=== PATIENT | female | born 1960 | race Caucasian/White ===

== ENCOUNTER → 2016-06-04 | Outpatient (CLI) | payer OTHER ==
[~2016-06-04] MED LIST: ADVIN25/60 INH; ASPEC81 PO; ATEN50TA PO; CITA40TA4 PO; CLON0.5T3 PO; HYDR-5688 PO; HYDR50TA3 PO; LEVO137T3 PO; MONT1TAB3 PO; MRPSR15 PO; MULTTAB58 PO; OMEP20TA40 PO; POTA10TA PO; PRAM1TAB PO; PRAV20TA PO; SNK PO
--- NOTE | 2016-06-04 08:51 | DIAGNOSTIC IMAGING REPORT ---
CT OF THE ABDOMEN AND PELVIS WITH AND WITHOUT CONTRAST HEMATURIA PROTOCOL CLINICAL HISTORY: Left flank pain. COMPARISON STUDY: CT of the abdomen and pelvis April 14, 2015 and IVP April 22, 2015. TECHNIQUE: Unenhanced and split bolus phase imaging of the abdomen and pelvis was performed. Injection of 119 cc Optiray [address] DOSE: 2996.29 mGy.cm FINDINGS: No renal, ureteral or bladder calculi are noted. There is no hydronephrosis or hydroureter. A cyst within the lower pole of the left kidney has mildly increased in size since exam of April 14, 2015 but remains diminished in size when compared to initial CT of November 22, 2014. This cyst measures 4.7 x 3.4 cm. It previously measured 3.5 x 2.4 cm. No additional renal lesions are present. No upper tract filling defects are identified. The gallbladder is surgically absent. No bladder lesion is identified although the nondependent aspect of the bladder is unopacified. The liver, spleen, adrenal glands and pancreas are unremarkable. There is no evidence for a bowel obstruction. There is no lymphadenopathy. Small umbilical hernia containing fat is noted. Skeletal structures are unremarkable. IMPRESSION: 1. Mild increase in size of the 4.7 x 3.4 cm left renal cyst since prior CT. This cyst remains decreased in size when compared to initial CT of November 22, 2014. 2. No urinary calculi or hydronephrosis. 3. No upper tract urothelial lesions identified. Electronically signed by: Jarret Armstrong M.D. 06/04/2016 8:49 AM Dictated Date/Time: 06/04/2016 8:41 AM
== END | disposition home or self-care (01) ==
LOC: C.CTS 07:58
PROVIDERS: ATTEND Urology
DX: R10.9 Unspecified abdominal pain (principal); N28.1 Cyst of kidney, acquired

== ENCOUNTER → 2016-08-17 | Outpatient (CLI) | payer OTHER ==
--- NOTE | 2016-08-17 12:47 | DIAGNOSTIC IMAGING REPORT ---
CHEST 2 VIEWS ROUTINE CLINICAL HISTORY: PRE-OP preoperative evaluation COMPARISON STUDY: No previous studies for comparison. FINDINGS: The bones soft tissues and hemidiaphragms are normal. The cardiomediastinal silhouette is normal. The lungs are clear. The pulmonary vasculature is normal. IMPRESSION: Negative chest. Electronically signed by: Gilbert Humphreys M.D. 08/17/2016 12:46 PM Dictated Date/Time: 08/17/2016 12:44 PM
[2016-08-17 13:20] LABS: BASO % 0.3 %; BASO ABS # 0.04 K/uL (0-0.2); COMPLETE YES; EOS % 2.7 %; IG% 0.4 %; LYMPH % 23.1 %; LYMPH ABS # 2.94 K/uL (1.2-3.4); MEAN CELL VOLUME 90.9 fL (80-100); MEAN CORPUSCULAR HEMOGLOBIN 30.6 pg (25-34); MEAN CORPUSCULAR HGB CONC 33.6 g/dl (32-36); MEAN PLATELET VOLUME 10.1 fL (7.4-10.4); MONO % 6.4 %; NEUT % 67.1 %; PLATELET COUNT 307 K/uL (130-400); RED BLOOD COUNT 4.84 M/uL (4.2-5.4); WHITE BLOOD COUNT 12.74 K/uL (4.8-10.8)
[2016-08-17 13:44] LABS: BLOOD UREA NITROGEN 12 mg/dl (7-18); BUN/CREATININE RATIO 13.2 (10-20); CALCIUM 9.6 mg/dl (8.5-10.1); CARBON DIOXIDE 33 mmol/L (21-32); CHLORIDE 103 mmol/L (98-107); CREATININE 0.93 mg/dl (0.60-1.20); GLUCOSE 100 mg/dl (70-99); INR 0.9 (0.9-1.1); POTASSIUM 3.3 mmol/L (3.5-5.1); PROTHROMBIN TIME (PATIENT) 10.1 SECONDS (9.0-12.0); SODIUM 142 mmol/L (136-145)
[2016-08-17 13:46] LABS: URINE APPEARANCE CLEAR (CLEAR); URINE BILIRUBIN NEG (NEG); URINE COLOR YELLOW; URINE EPITHELIAL CELL AUTO >30 /lpf (0-5); URINE NITRITE NEG (NEG); URINE SPECIFIC GRAVITY 1.016 (1.000-1.030); UROBILINOGEN NEG (NEG)
[2016-08-17 13:56] LABS: MANUAL MICROSCOPIC REQUIRED? NO; REVIEW REQ? NO
[2016-08-17 14:31] LABS: ESTIMATED AVERAGE GLUCOSE 128 mg/dl; HA1C FLAG Normal (Normal)
== END | disposition home or self-care (01) ==
LOC: C.CPL 11:58
PROVIDERS: ATTEND Orthopaedic Surgery
DX: M17.11 Unilateral primary osteoarthritis, right knee (principal)

== ENCOUNTER 2016-08-28 05:55 | Inpatient (IN) | payer OTHER ==
--- NOTE | 2016-08-20 12:48 | HISTORY & PHYSICAL EXAMINATION ---
DATE OF ADMISSION: 08/21/2016 HISTORY OF PRESENT ILLNESS: The patient presents as a 55-year-old white female, 5.4, 250 pounds presents with complaints of ongoing pain attributable to her left knee for left total knee arthroplasty. She has failed attempts at conservative management including physical therapy, anti-inflammatories, relative rest, activity modification, injections and presents for total knee arthroplasty. PAST MEDICAL HISTORY: Significant for hypertension, hypercholesterolemia, asthma, sleep apnea, utilizing home CPAP. Otherwise unremarkable. See history of present illness for pertinent positives. FAMILY HISTORY: Unremarkable and noncontributory. SOCIAL HISTORY: The patient denies history of smoking, alcohol use or recreational drug use. PAST SURGICAL HISTORY: Significant for tonsillectomy in 1962, hysterectomy in 1991, and appendectomy. ALLERGIES: BETADINE CAUSES SKIN IRRITATION AND NICK INHIBITORS. MEDICATIONS: Include omeprazole 40 mg p.o. daily, hydrochlorothiazide 50 mg p.o. daily, Klonopin 5 mg p.o. daily, Singulair p.r.n., atenolol - unknown dose, Advair 2 times daily, and Imitrex p.r.n. for migraines. PHYSICAL EXAMINATION: GENERAL: Reveals a very pleasant 55-year-old white female, alert and oriented x3 with complaints of ongoing pain attributable to her left knee and presents for left total knee arthroplasty, postoperative pain management, DVT prophylaxis, antibiotics. HEENT: Otherwise atraumatic, normocephalic. HEART: Regular at 70 beats per minute. No murmurs are noted. LUNGS: Clear. No rales, rhonchi, or wheezes noted. ABDOMEN: Soft, nontender, nondistended. Bowel sounds are present in all 4 quadrants. RECTAL: No rectal examination performed. MUSCULOSKELETAL: Consistent with that of severe DJD, left knee with varus alignment, [id number] medial compartment with subchondral sclerosis, osteophyte formation. PLAN: Left total knee arthroplasty. Postop pain management, DVT prophylaxis, antibiotics as necessary. MTDD
[2016-08-27 14:43] VITALS: BMI 43.0
[~2016-08-28] VITALS: Ht 162.6 cm; Wt 113.6 kg
[2016-08-28] VITALS (10 sets, daily range): BP systolic 105–120; BP diastolic 65–81; PULSE 69–88; TEMP 36.4–36.9; O2SAT 92–99; Ht 162.6 cm; Wt 113.6 kg
[~2016-08-28 05:55] MED LIST changes: -ASPEC81 PO; -HYDR-5688 PO; -MRPSR15 PO; -PRAM1TAB PO; -SNK PO
[2016-08-28] MEDS ORDERED: DEXAMETHASONE 4 MG TAB PO SCH (06:00)
[2016-08-28] MEDS ORDERED: METOCLOPRAMIDE HCL 10 MG TAB PO SCH (06:00)
[2016-08-28] MEDS ORDERED: ACETAMINOPHEN 500 MG TAB PO SCH (06:00)
[2016-08-28] MEDS ORDERED: CEFAZOLIN 2000 MG/60 ML D5W 60 ML IV SCH (06:00)
[2016-08-28] MEDS ORDERED: ROPIVACAINE 5MG/ML 30 ML 150 MG, BUPIVACAINE/EPINEPHR 0.5% MPF 30 ML, KETOROLAC TROMETH... INFIL SCH ×7 (06:00)
[2016-08-28] MEDS ORDERED: CeleBREX 200 MG CAP PO SCH (06:00)
[2016-08-28] MEDS ORDERED: GABAPENTIN 300 MG CAP PO SCH (06:00)
[2016-08-28] MEDS ORDERED: LACTATED RINGER'S 1000ML IV SCH (06:00)
[2016-08-28] MEDS: TRANEXAMIC ACID INJ 1,000 MG in SODIUM CHLORIDE 0.9% 100ML 100 ML IV SCH ×2 (06:30→07:50)
--- NOTE | 2016-08-28 06:50 | History & Physical Bridge Note ---
H&P Re-Evaluation Bridge Note: I have examined the patient, reviewed the History & Physical and in the interval since the performance of the History & Physical I have noted the following changes of clinical significance: No changes noted
[2016-08-28] MEDS ORDERED: POVIDONE-IODINE OP SOLN 30 ML BTL ONE (06:59)
[2016-08-28] MEDS ORDERED: BACITRACIN 50000 UNIT VIAL ONE (06:59)
[2016-08-28] MEDS ORDERED: ORTHO JOINT ANESTHETIC ONE (06:59)
[2016-08-28] MEDS ORDERED: MIDAZOLAM HCL 1 MG/ML 2ML VIAL ONE (07:07)
[2016-08-28] MEDS ORDERED: FENTANYL CITRATE INJ 50 MCG/1 ML 2 ML VIAL ONE (07:07)
[2016-08-28] MEDS ORDERED: BUPIVACAINE 0.5 % 5 MG/1 ML PF 10ML VIAL ONE (07:09)
[2016-08-28] MEDS ORDERED: BUPIVACAINE 0.25% 30 ML VIAL ONE (07:09)
[2016-08-28] MEDS ORDERED: LIDOCAINE HCL 2% 2 ML VIAL (20MG/ML) ONE (07:11)
[2016-08-28] MEDS ORDERED: PROPOFOL IV EMULSION 10 MG/ML 20 ML VIAL IV ONE ×3 (07:11→09:18)
[2016-08-28] MEDS ORDERED: LACTATED RINGER'S 1000ML 1,000 ML IV PRN (07:25)
[2016-08-28] MEDS ORDERED: FENTANYL CITRATE INJ 50 MCG/1 ML 2 ML VIAL IV PRN (07:30)
[2016-08-28] MEDS ORDERED: ONDANSETRON INJ 2 MG/ML 2 ML VIAL IV PRN ×2 (07:30→09:30)
[2016-08-28] MEDS ORDERED: KETAMINE HCL INJ 50 MG/ML 10 ML VIAL ONE (08:41)
--- NOTE | 2016-08-28 09:27 | [facility] Post Operative Brief Note ---
Immediate Operative Summary Operative Date August 28, 2016. Pre-Operative Diagnosis Left Knee Degenerative Joint Disease Post-Operative Diagnosis Left Knee Degenerative Joint Disease Procedure(s) Performed Left Total Knee Arthroplasty Surgeon Dr. Christopher Lubin Laborer Rags Surgeon(s) Bang Otero PA-C Estimated Blood Loss 5ML Findings severe djd lt knee Specimens A. Left Knee Bone and Tissue Complication(s) None Disposition Recovery Room / PACU
[2016-08-28] MEDS ORDERED: ZOLPIDEM TARTRATE 5 MG TAB PO PRN (09:30)
[2016-08-28] MEDS ORDERED: METOCLOPRAMIDE HCL INJ 5 MG/ML 2 ML VIAL IV PRN (09:30)
[2016-08-28] MEDS ORDERED: BISACODYL 10 MG SUPP PR PRN (09:30)
[2016-08-28] MEDS ORDERED: DiphenhydrAMINE HCL 50 MG/ML VIAL IV PRN (09:30)
[2016-08-28] MEDS ORDERED: MAGNESIUM HYDROXIDE SUSP 30 ML UDC PO PRN (09:30)
[2016-08-28] MEDS ORDERED: ALUMINUM/MAGNESIUM/SIMETH (MAALOX MAX) 30 ML UDC PO PRN (09:30)
[2016-08-28] MEDS ORDERED: SOD PHOSPHATE/SOD BIPHOSPHATE ENEMA 132 ML BTL PR PRN (09:30)
[2016-08-28] MEDS ORDERED: ONDANSETRON INJ 2 MG/ML 2 ML VIAL ONE (09:37)
--- NOTE | 2016-08-28 09:47 | OPERATIVE REPORT ---
DATE OF ADMISSION: 08/28/2016 PREOPERATIVE DIAGNOSIS: Severe end-stage degenerative joint disease, left knee. POSTOPERATIVE DIAGNOSIS: Severe end-stage degenerative joint disease, left knee. PROCEDURE: Left total knee arthroplasty utilizing Haines \T\ Nephew Journey II nonblock total knee arthroplasty, size 4 femur, 3 tibia, 9 poly, 29 oval patella. SURGEON: Dr. Lubin. SUPERVISOR IN CIRCUIT TESTING: MONICA Ballesteros. ANESTHESIA: Femoral nerve block, spinal. COMPLICATIONS: None. ESTIMATED BLOOD LOSS: 5 mL TOURNIQUET TIME: 45 minutes. HISTORY: The patient presents as a very pleasant 55-year-old white female with complaints of severe end-stage DJD about her left knee. She has failed attempts at conservative management including physical therapy, anti-inflammatories, relative rest, activity modification, and presents today for left total knee arthroplasty after failing all conservative measures. Risks and complications were discussed extensively. Decision was made to proceed forward with total knee arthroplasty. OPERATION AND FINDINGS: PROCEDURE: The patient was properly prepped and draped in supine position for total knee arthroplasty after identifying the appropriate surgical site. An anterior midline incision was made through the subcutaneous tissues down to the region of the extensor mechanism. A medial parapatellar incision was subsequently made. Meticulous hemostasis was obtained and performed at all times. The patella having been subluxed lateralward, medial and lateral meniscal remnants were excised. The patellar cut was then initially made and was sized to the appropriate size. After subluxing the tibia forward the appropriate meniscal fragments having been removed the distal femur was then cut first utilizing a Haines and Nephew nonblock. The distal femoral cuts and chamfer cuts were all made under direct visualization and the proximal tibial osteotomy cut was also made utilizing Haines and Nephew nonblocks and checked with an extramedullary guide. The appropriate trial components on the femur and tibia were placed. Appropriate trial spacers were used to check flexion and extension gaps. With flexion and extension gaps being equal, the components were then subsequently after thorough irrigation and debridement lavage components were then subsequently cemented in the following order: femur, tibia and patella. Exparel was used for intraoperative anesthesia, the medial parapatellar incision was closed utilizing #1 Vicryl, subQ was closed with 2-0 Vicryl, skin was closed with skin clips. A sterile compression dressing was placed. The patient was taken to recovery room in stable condition. Due to the complex nature of the procedure, the entire surgery was performed with the operational assistance of MONICA Ballesteros. The campus administrative assistant, under direct supervision, was involved in the actual performance of all aspects of the surgical procedure including hemostasis, tissue retraction and incision, instrument management, patient positioning, and wound closure. I attest to the content of the Intraoperative Record and any orders documented therein. Any exceptions are noted below. MIGUEL A
[2016-08-28] MEDS ORDERED: MoRPHine SULFATE 2 MG/ML CARP IV PRN ×2 (10:15→12:30)
--- NOTE | 2016-08-28 10:25 | DIAGNOSTIC IMAGING REPORT ---
LEFT KNEE 1 OR 2 VIEWS ROUTINE CLINICAL HISTORY: AP/LATERAL IN PACU LEFT KNEE COMPARISON: None. DISCUSSION: Evidence for a total left knee arthroplasty. Good contact between prosthetic and underlying bone. Surgical drains are in position IMPRESSION: Anatomic alignment status post total left knee replacement Electronically signed by: Gilbert Humphreys M.D. 08/28/2016 10:24 AM Dictated Date/Time: 08/28/2016 10:23 AM
--- NOTE | 2016-08-28 11:12 | Anesthesiology Progress Note ---
Anesthesia Post Op Note Date & Time August 28, 2016 at 11:11 Vital Signs Pain Intensity: 0 Vital Signs Past 12 Hours Date Time Temp Pulse Resp B/P Pulse Ox O2 Delivery O2 Flow Rate FiO2 08/28/16 11:05 78 18 103/66 95 Nasal Cannula 3 08/28/16 10:55 74 22 99/60 92 Nasal Cannula 3 08/28/16 10:45 74 19 111/64 92 Nasal Cannula 3 08/28/16 10:35 73 18 108/64 94 Nasal Cannula 3 08/28/16 10:25 76 15 107/68 94 Nasal Cannula 3 08/28/16 10:15 80 16 105/73 97 Nasal Cannula 3 08/28/16 10:08 36.8 86 16 99/66 95 Nasal Cannula 3 08/28/16 06:44 36.6 69 20 118/79 94 Room Air Notes Mental Status: alert / awake / arousable, participated in evaluation Pt Amnestic to Procedure: No (recall as expected) Nausea / Vomiting: adequately controlled Pain: adequately controlled Airway Patency, RR, SpO2: stable & adequate BP & HR: stable & adequate Hydration State: stable & adequate Neuraxial Anesthesia: was administered, sensory block is resolving Anesthetic Complications: no major complications apparent Pt doing well.
[2016-08-28] MEDS: SODIUM CHLORIDE 0.9% 1000ML 1,000 ML IV SCH ×2 (12:27→18:53)
[2016-08-28] MEDS ORDERED: MoRPHine SULFATE 10 MG/ML CARP/VIAL IV PRN (12:30)
[2016-08-28] MEDS: FERROUS GLUCONATE 324 MG TAB PO SCH ×2 (13:05→17:20)
[2016-08-28] MEDS ORDERED: TRANEXAMIC ACID INJ 1,000 MG in SODIUM CHLORIDE 0.9% 100ML 100 ML IV SCH (16:00)
[2016-08-28] MEDS: CEFAZOLIN IV 2,000 MG in DEXTROSE 5% 50ML 50 ML IV SCH ×2 (16:23→23:19)
[2016-08-28] MEDS: OXYCODONE HCL IR 5 MG TAB (IMMEDIATE RELEASE) PO PRN ×2 (17:00→23:20)
[2016-08-28] MEDS ORDERED: OXYCODONE HCL 10 MG TABCR (OXYCONTIN) PO SCH (21:00)
[2016-08-28] MEDS: CLONAZEPAM 0.5 MG TAB PO SCH (21:04)
[2016-08-28] MEDS: ASPIRIN 325 MG ECTAB PO SCH (21:04)
[2016-08-28] MEDS: FLUTICASONE/SALMETEROL 250/50 (ADVAIR) 14 PUFF/1 INHALER INH SCH (21:04)
[2016-08-28] MEDS: DOCUSATE SODIUM 100 MG CAP PO SCH (21:05)
[2016-08-28] MEDS: PRAVASTATIN SOD 20 MG TAB PO SCH (21:05)
[2016-08-28] MEDS: MONTELUKAST SOD 10 MG TAB PO SCH (21:06)
[2016-08-28] MEDS: SENNA 8.6 MG TAB PO SCH (21:06)
[2016-08-29] VITALS (7 sets, daily range): BP systolic 102–157; BP diastolic 67–93; PULSE 70–82; TEMP 36.4–37.5; O2SAT 90–95
[2016-08-29] MEDS: SODIUM CHLORIDE 0.9% 1000ML 1,000 ML IV SCH (05:30)
[2016-08-29] MEDS: OXYCODONE HCL IR 5 MG TAB (IMMEDIATE RELEASE) PO PRN (05:30)
[2016-08-29] MEDS: LEVOTHYROXINE 137 MCG TAB PO SCH (05:30)
[2016-08-29 06:58] LABS: HEMATOCRIT 36.3 % (37-47); MEAN CELL VOLUME 91.2 fL (80-100); MEAN CORPUSCULAR HEMOGLOBIN 30.7 pg (25-34); MEAN CORPUSCULAR HGB CONC 33.6 g/dl (32-36); MEAN PLATELET VOLUME 9.9 fL (7.4-10.4); PLATELET COUNT 250 K/uL (130-400); RED BLOOD COUNT 3.98 M/uL (4.2-5.4); WHITE BLOOD COUNT 16.96 K/uL (4.8-10.8)
--- NOTE | 2016-08-29 07:08 | Orthopedic Progress Note ---
Orthopedic Progress Note Date of Service August 29, 2016. Subjective Post OP Day: 1 Reports: nausea / vomiting, Denies: SOB, calf pain, chest pain, light headedness Additional Notes: Pt with nausea and some emesis last night. States that Oxycodone causes nausea as well as other narcotics. Hydrocodone is less bothersome. No other complaints this AM. Objective calves soft nontender, N/V intact, dressing C/D/I, A&O x3, toes mobile, hemovac drainage (30ml latest shift) Date Time Temp Pulse Resp B/P Pulse Ox O2 Delivery O2 Flow Rate FiO2 08/29/16 03:30 36.4 78 17 102/67 94 Room Air 08/28/16 23:20 CPAP 08/28/16 22:53 36.4 88 16 114/71 92 Room Air 08/28/16 19:34 36.6 85 18 118/75 96 Nasal Cannula 2.0 08/28/16 15:00 36.7 80 18 115/81 95 Nasal Cannula 3.0 08/28/16 14:31 36.9 83 19 120/65 92 Nasal Cannula 3.0 08/28/16 13:25 82 16 109/70 99 Nasal Cannula 3.0 08/28/16 12:25 36.9 83 16 114/76 95 Nasal Cannula 3.0 08/28/16 12:00 92 Nasal Cannula 3.0 08/28/16 11:55 36.7 81 16 109/72 92 Nasal Cannula 3.0 08/28/16 11:25 36.9 82 14 105/70 93 Nasal Cannula 3.0 08/28/16 11:25 92 Nasal Cannula 3.0 08/28/16 11:25 36.9 82 14 105/70 92 Nasal Cannula 3.0 08/28/16 11:15 79 17 105/64 93 Nasal Cannula 3 08/28/16 11:05 36.6 78 18 103/66 95 Nasal Cannula 3 08/28/16 10:55 74 22 99/60 92 Nasal Cannula 3 08/28/16 10:45 74 19 111/64 92 Nasal Cannula 3 08/28/16 10:35 73 18 108/64 94 Nasal Cannula 3 08/28/16 10:25 76 15 107/68 94 Nasal Cannula 3 08/28/16 10:15 80 16 105/73 97 Nasal Cannula 3 08/28/16 10:08 36.8 86 16 99/66 95 Nasal Cannula 3 Laboratory Results 24 Hours: Test 08/29/16 06:30 Hematocrit 36.3 % Hemoglobin 12.2 g/dL Assessment & Plan Assessment: POD 1 s/p Left TKA Plan: Hold Oxycontin; OxyIR; Add [place] and Toradol. Consider MSContin if pain control still not adequate PT/OT PLanning for OPPT Inhouse Planning Pain Management: Toradol, [place], Morphine, PO Tylenol DVT Prophylaxis: TEDs, SCDs, ASA
[2016-08-29 07:30] LABS: CALCIUM 8.6 mg/dl (8.5-10.1); CREATININE 0.84 mg/dl (0.60-1.20); POTASSIUM 3.8 mmol/L (3.5-5.1)
--- NOTE | 2016-08-29 07:49 | Anesthesiology Progress Note ---
Anesthesia Post Op Note Date & Time August 29, 2016 at 07:50 Vital Signs Pain Intensity: 3.0 Vital Signs Past 12 Hours Date Time Temp Pulse Resp B/P Pulse Ox O2 Delivery O2 Flow Rate FiO2 08/29/16 03:30 36.4 78 17 102/67 94 Room Air 08/28/16 23:20 CPAP 08/28/16 22:53 36.4 88 16 114/71 92 Room Air Notes Mental Status: alert / awake / arousable, participated in evaluation Pt Amnestic to Procedure: Yes Nausea / Vomiting: adequately controlled Pain: adequately controlled Airway Patency, RR, SpO2: stable & adequate BP & HR: stable & adequate Hydration State: stable & adequate Neuraxial Anesthesia: was administered, sensory block resolved Anesthetic Complications: no major complications apparent
[2016-08-29] MEDS: FLUTICASONE/SALMETEROL 250/50 (ADVAIR) 14 PUFF/1 INHALER INH SCH ×2 (08:42→20:49)
[2016-08-29] MEDS: FERROUS GLUCONATE 324 MG TAB PO SCH ×3 (08:42→17:46)
[2016-08-29] MEDS: ASPIRIN 325 MG ECTAB PO SCH ×2 (08:43→20:49)
[2016-08-29] MEDS: HYDROCHLOROTHIAZIDE 50 MG TAB PO SCH (08:43)
[2016-08-29] MEDS: CITALOPRAM 40 MG TAB PO SCH (08:43)
[2016-08-29] MEDS: POTASSIUM CHLORIDE 10 MEQ TABCR PO SCH (08:43)
[2016-08-29] MEDS: DOCUSATE SODIUM 100 MG CAP PO SCH ×2 (08:43→20:49)
[2016-08-29] MEDS: MULTIVITAMIN TAB PO SCH (08:44)
[2016-08-29] MEDS: PANTOprazole SOD 40 MG TAB PO SCH (08:44)
[2016-08-29] MEDS: HYDROCODONE/ACETAMOPHEN 5/325MG TAB PO PRN ×2 (08:47→14:06)
[2016-08-29] MEDS ORDERED: OMEPRAZOLE 20 MG PO SCH (09:00)
[2016-08-29] MEDS: MoRPHine SULFATE 4 MG/ML 1 ML CARP\\VIAL IV PRN ×2 (11:12→17:13)
[2016-08-29] MEDS: KETOROLAC TROMETHAMINE 30 MG/ML VIAL IV PRN ×2 (15:39→21:47)
[2016-08-29] MEDS: CLONAZEPAM 0.5 MG TAB PO SCH (20:49)
[2016-08-29] MEDS: MONTELUKAST SOD 10 MG TAB PO SCH (20:50)
[2016-08-29] MEDS: PRAVASTATIN SOD 20 MG TAB PO SCH (20:50)
[2016-08-29] MEDS: SENNA 8.6 MG TAB PO SCH (20:50)
[2016-08-30] MEDS: HYDROCODONE/ACETAMOPHEN 5/325MG TAB PO PRN ×4 (02:19→16:15)
[2016-08-30] MEDS: KETOROLAC TROMETHAMINE 30 MG/ML VIAL IV PRN ×2 (03:58→18:46)
[2016-08-30] MEDS: LEVOTHYROXINE 137 MCG TAB PO SCH (05:50)
[2016-08-30 05:59] VITALS: BP 122/78; PULSE 81; TEMP 36.7; O2SAT 92
[2016-08-30] MEDS: DOCUSATE SODIUM 100 MG CAP PO SCH ×2 (08:05→21:34)
[2016-08-30] MEDS: ASPIRIN 325 MG ECTAB PO SCH ×2 (08:05→21:34)
[2016-08-30] MEDS: CITALOPRAM 40 MG TAB PO SCH (08:05)
[2016-08-30] MEDS: HYDROCHLOROTHIAZIDE 50 MG TAB PO SCH (08:06)
[2016-08-30] MEDS: PANTOprazole SOD 40 MG TAB PO SCH (08:06)
[2016-08-30] MEDS: POTASSIUM CHLORIDE 10 MEQ TABCR PO SCH (08:07)
[2016-08-30] MEDS: MULTIVITAMIN TAB PO SCH (08:07)
[2016-08-30] MEDS: FERROUS GLUCONATE 324 MG TAB PO SCH ×3 (08:07→18:46)
[2016-08-30] MEDS: FLUTICASONE/SALMETEROL 250/50 (ADVAIR) 14 PUFF/1 INHALER INH SCH ×2 (08:08→21:32)
[2016-08-30] MEDS ORDERED: MoRPHine SULFATE CR 15 MG TAB (MS CONTIN) ONE (08:12)
--- NOTE | 2016-08-30 10:42 | Orthopedic Progress Note ---
Orthopedic Progress Note Date of Service August 30, 2016. Subjective Post OP Day: 2 Reports: feeling well (Pain not well controlled) Objective N/V intact, dressing C/D/I, toes mobile Date Time Temp Pulse Resp B/P Pulse Ox O2 Delivery O2 Flow Rate FiO2 08/30/16 08:00 Room Air 08/30/16 05:59 36.7 81 16 122/78 92 Room Air 08/30/16 00:25 Room Air 08/29/16 23:02 36.4 79 16 112/75 90 Room Air 08/29/16 20:48 79 157/93 08/29/16 16:15 Room Air 08/29/16 15:01 37.1 82 18 126/82 94 Room Air 08/29/16 10:56 37.0 80 18 120/82 95 Room Air Assessment & Plan Assessment: 55 yo female stable POD #2 s/p Left TKA Plan: 1. Med management 2. DVT prophylaxis- ASA, TEDs, SCDs 3. PT/OT 4. D/C planning- home w/ OPPT Inhouse Planning Pain Management: Toradol, [place], Morphine, PO Tylenol DVT Prophylaxis: TEDs, SCDs, ASA
[2016-08-30 15:12] VITALS: BP 116/70; PULSE 90; TEMP 37.2; O2SAT 92
--- NOTE | 2016-08-30 16:28 | Discharge Instructions ---
Discharge Instructions Date of Service August 30, 2016. Admission Reason for Admission: Left Knee Osteoarthritis Discharge Discharge Diagnosis / Problem: Left Knee Djd Discharge Goals Goal(s): Decrease discomfort, Improve function Activity Recommendations Activity Limitations: per Instructions/Follow-up section Weightbearing Status: Left weightbearing (as tolerated) . Instructions / Follow-Up Instructions / Follow-Up ACTIVITY RECOMMENDATIONS: SELF CARE INSTRUCTIONS AFTER TOTAL KNEE REPLACEMENT A. You may need to continue a physical therapy program after discharge from the hospital. There are several options available to you. Your doctor will assist you in selecting the best one for you. 1. An out-patient facility 2 to 3 times a week for therapy or home therapy. 2. Continue working on all exercises taught to you in the hospital. Your goals should be to increase bending of your knee to 90 degrees and beyond and to fully straighten your knee. B. You may progress at your own pace from walking with a walker or crutches to a cane; then to no assistive devices. C. Make walking a part of your daily routine. Be up as much as comfortable with rest periods throughout the day. Rest with leg elevation is very important. Use the ice wrap frequently for the first 3-4 weeks. D. There are no restrictions on activities. You may ride in a car, shop, participate in offender job retention specialist and all social activities. E. Wear the long elastic stockings (JANAK hose) 20 hours a day for 2 weeks after surgery. They can be removed several times a day for laundering and for a bath. F. You may shower, no tub baths until cleared by your doctor. SPECIAL CARE INSTRUCTIONS: VERY IMPORTANT TO READ AND REVIEW A. There are a few signs you need to watch for after you are home. Call [facility] if you notice any of the followin. Increased severe knee pain. Some pain is expected especially when you exercise. 2. Increased swelling in your leg or knee; pain or swelling of the calf muscle in either lower leg. 3. Any fluid drainage from the incision. 4. Shortness of breath or chest pain. B. Please call [facility] at if you have any concerns or questions about your operation or recovery. The doctor or his nurse will return your call promptly. C. You must take antibiotics before dental work, bladder, bowel or other surgery. Your doctor will provide you with a permanent care to carry describing this precaution. IMPORTANT: * REMEMBER TO TAKE ASPIRIN, 81 MG, TWICE DAILY FOR 4 WEEKS UNLESS OTHERWISE DIRECTED. THIS IS YOUR BLOOD THINNER. * HIGH RISK PATIENTS MAY BE PRESCRIBED A STRONGER BLOOD THINNER. THIS WILL BE PROVIDED AT DISCHARGE. * CALL IF INCREASED PAIN, REDNESS, DRAINAGE OR FEVER GREATER THAT 101. * WEAR JANAK HOSE 20 HOURS PER DAY FOR 2 WEEKS. * DERMABOND Prineo- This is a mesh tape dressing that is covered with glue. It should remain in place until the incision is properly healed, usually 10-14 days. This dressing is designed to naturally slough off. You may trim the excess mesh tape as it peels off. Incision may be briefly wet in a shower. Dry immediately by blotting with a clean, dry towel. Do not bath or swim until instructed by your doctor. Do not scratch, rub, or pick at the dressing. Do not apply any topical ointments or lotions until dressing is completely removed and/or instructed by your doctor. There may be a small piece of suture material at one end of your incision. Do not pull or trim this. If it is bothersome or catching on clothing, you may cover it with a band-aid. . FOLLOW UP VISIT: If appointment is not already scheduled: Please call [facility] to make a follow-up appointment for 2 weeks after your surgery at . Current Hospital Diet Patient's current hospital diet: Regular Diet Discharge Diet Recommended Diet: Regular Diet Procedures Procedures Performed: Left Total Knee Arthroplasty Pending Studies Studies pending at discharge: no Laboratory Results Hemoglobin A1c Test 08/17/16 12:06 Range/Units Estimated Average Glucose 128 mg/dl Hemoglobin A1c 6.1 H 4.5-5.6 % Medical Emergencies . Who to Call and When: Medical Emergencies: If at any time you feel your situation is an emergency, please call 911 immediately. . Non-Emergent Contact Non-Emergency issues call your: Surgeon Call Non-Emergent contact if: temperature is above 101.5, your pain is not controlled, your pain is worsening, wound has increased drainage, wound has increased redness . "Provider Documentation" section prepared by Bang Otero. . VTE Core Measure Inpt VTE Proph given/why not?: Other Anticoagulation, T.E.D. Stockings, SCD's [place] Drug Monitoring Program Search Results: patient reviewed within database, no issues identified
[2016-08-30 18:52] VITALS: TEMP 37
[2016-08-30] MEDS: CLONAZEPAM 0.5 MG TAB PO SCH (21:31)
[2016-08-30] MEDS: MoRPHine SULFATE CR 15 MG TAB (MS CONTIN) PO SCH (21:31)
[2016-08-30] MEDS: PRAVASTATIN SOD 20 MG TAB PO SCH (21:34)
[2016-08-30] MEDS: MONTELUKAST SOD 10 MG TAB PO SCH (21:34)
[2016-08-30] MEDS: SENNA 8.6 MG TAB PO SCH (21:34)
[2016-08-30 21:36] VITALS: BP 125/75; PULSE 93
[2016-08-31 00:05] VITALS: BP 127/83; PULSE 84; TEMP 37.4; O2SAT 90
[2016-08-31] MEDS: HYDROCODONE/ACETAMOPHEN 5/325MG TAB PO PRN ×2 (03:13→12:27)
[2016-08-31] MEDS: LEVOTHYROXINE 137 MCG TAB PO SCH (05:29)
[2016-08-31] MEDS: KETOROLAC TROMETHAMINE 30 MG/ML VIAL IV PRN (05:30)
[2016-08-31 07:11] VITALS: BP 109/74; PULSE 87; TEMP 36.8; O2SAT 97
[2016-08-31] MEDS: FERROUS GLUCONATE 324 MG TAB PO SCH ×2 (08:29→12:28)
[2016-08-31] MEDS: MULTIVITAMIN TAB PO SCH (08:30)
[2016-08-31] MEDS: HYDROCHLOROTHIAZIDE 50 MG TAB PO SCH (08:30)
[2016-08-31] MEDS: PANTOprazole SOD 40 MG TAB PO SCH (08:30)
[2016-08-31] MEDS: ASPIRIN 325 MG ECTAB PO SCH (08:30)
[2016-08-31] MEDS: FLUTICASONE/SALMETEROL 250/50 (ADVAIR) 14 PUFF/1 INHALER INH SCH (08:30)
[2016-08-31] MEDS: MoRPHine SULFATE CR 15 MG TAB (MS CONTIN) PO SCH (08:30)
[2016-08-31] MEDS: POTASSIUM CHLORIDE 10 MEQ TABCR PO SCH (08:30)
[2016-08-31] MEDS: DOCUSATE SODIUM 100 MG CAP PO SCH (08:30)
[2016-08-31] MEDS: CITALOPRAM 40 MG TAB PO SCH (08:30)
--- NOTE | 2016-08-31 08:56 | Orthopedic Progress Note ---
Orthopedic Progress Note Date of Service August 31, 2016. Subjective Post OP Day: 3 Reports: feeling well, Denies: complaints Additional Notes: Feeling better after switching pain meds. No BM yet but passing flatus. No other complaints. Looking forward to going home today. Objective calves soft nontender, N/V intact, incision C/D/I, A&O x3, toes mobile Date Time Temp Pulse Resp B/P Pulse Ox O2 Delivery O2 Flow Rate FiO2 08/31/16 07:14 Room Air 08/31/16 07:11 36.8 87 18 109/74 97 Room Air 08/31/16 00:05 37.4 84 16 127/83 90 Room Air 08/30/16 23:50 Room Air 08/30/16 21:36 93 125/75 08/30/16 18:52 37.0 08/30/16 16:15 Room Air 08/30/16 15:12 37.2 90 18 116/70 92 Room Air 08/30/16 11:07 Room Air Assessment & Plan Assessment: 55 yo female stable POD #3 s/p Left TKA Plan: Continue PT/OT Progressing Plan for dc to home today. Inhouse Planning Pain Management: Toradol, [place], Morphine, PO Tylenol DVT Prophylaxis: TEDs, SCDs, ASA Discharge Planning Discharge Planning: home with oppt Pain Management: Morphine (MS contin), PO Tylenol, Oxy IR DVT Prophylaxis: TEDs, ASA Therapy: Physical Therapy
[2016-08-31] MEDS ORDERED: SNK PO (09:01)
[2016-08-31] MEDS ORDERED: MRPSR15 PO (09:01)
[2016-08-31] MEDS ORDERED: ASPEC81 PO (09:01)
[2016-08-31] MEDS ORDERED: HYDR-5688 PO ×2 (09:01→09:02)
[2016-08-31 12:10] VITALS: BP 109/74; PULSE 87; TEMP 36.8; O2SAT 97
--- NOTE | 2016-08-31 12:58 | DISCHARGE SUMMARY ---
DATE OF DISCHARGE: 08/31/2016. DISCHARGE DIAGNOSIS: Degenerative joint disease left knee. SECONDARY DIAGNOSES: Hypertension, hypercholesterolemia, asthma, sleep apnea with use of CPAP. CONSULTS: None. COMPLICATIONS: None. PROCEDURES: Left total knee arthroplasty performed by Dr. Lubin on 08/28/2016. BRIEF HISTORY: As dictated in history and physical. HOSPITAL SUMMARY: The patient was admitted on the above date and had the above-noted surgery performed which she tolerated well. On her first postoperative day, she was having some nausea and vomiting that was the previous evening. She felt that the oxycodone caused the nausea as well as other narcotics. She stated that hydrocodone was less bothersome and she had no other complaints that morning. Calves were soft, nontender, neurovascularly intact. Dressings clean, dry and intact. Toes were mobile. Vital signs were stable. She was afebrile. Hemoglobin was 12.2. She was started on physical therapy protocol and continued on DVT prophylaxis and pain management. The OxyContin was held as well as OxyIR was discontinued. [place] was added along with Toradol. Plans were to consider MS Contin if pain control was still not adequate. The following day, she was feeling well. She felt that the pain was not well controlled. Neurovascular was intact. Dressings clean, dry and intact. Toes were mobile and vital signs were stable. MS Contin was added to her pain regimen and she was continued on her PT protocol. The rest of her stay was essentially uneventful and by 08/31/2016 vital signs remained stable. She was afebrile. Pain control was much better and she was progressing with her physical therapy and remaining stable and it was felt she could be discharged to home. For further review, please see chart. LAB AND X-RAY DATA: As per chart. DISCHARGE INSTRUCTIONS: The patient was discharged to home in satisfactory condition on 08/31/2016. DIET: Regular. ACTIVITY: Follow TK instruction sheets and special care instructions as noted. Follow up with Dr. Lubin in 2 weeks. The patient to call for appointment if one has not been made for you. DISCHARGE MEDICATIONS: Aspirin 81 mg p.o. b.i.d. for 30 days, Mccune 5/325 1-2 tabs p.o. q. 4-6 hours p.r.n. pain, MS Contin 15 mg p.o. q. 12 hours, senna 17.2 mg p.o. at bedtime. Resume home meds as listed.
== END 2016-08-31 13:08 | disposition home or self-care (01) | DRG 470 ==
LOC: ENRESERVTM → ENRESERVDT → C.ACU 05:55 → C.3E 06:45
PROVIDERS: ADMIT Orthopaedic Surgery; ATTEND Orthopaedic Surgery
PROC: 0SRD0J9 Replacement of Left Knee Joint with Synthetic Substitute, Cemented, Open Approach (ICD-10-PCS; principal; 2016-08-28 08:00)
DX: M17.12 Unilateral primary osteoarthritis, left knee (principal); Z68.41 Body mass index [BMI] 40.0-44.9, adult; M21.162 Varus deformity, not elsewhere classified, left knee; R11.2 Nausea with vomiting, unspecified; T40.2X5A Adverse effect of other opioids, initial encounter; Y92.230 Patient room in hospital as the place of occurrence of the external cause; J45.909 Unspecified asthma, uncomplicated; I10 Essential (primary) hypertension; E78.00 Pure hypercholesterolemia, unspecified; K21.9 Gastro-esophageal reflux disease without esophagitis; G43.909 Migraine, unspecified, not intractable, without status migrainosus; F41.9 Anxiety disorder, unspecified; F32.9 Major depressive disorder, single episode, unspecified; E66.01 Morbid (severe) obesity due to excess calories; G47.33 Obstructive sleep apnea (adult) (pediatric); Z79.1 Long term (current) use of non-steroidal anti-inflammatories (NSAID); Z99.89 Dependence on other enabling machines and devices; Z79.51 Long term (current) use of inhaled steroids; Z79.899 Other long term (current) drug therapy